=== PATIENT | female | born 1990 | race African-American/Black ===

== ENCOUNTER 2018-11-05 15:41 | Emergency (ER) | payer SELFPAY ==
--- NOTE | 2018-11-05 17:19 | EDM.PDOC ---
ED HPI GENERAL MEDICAL PROBLEM - General Chief Complaint: ENT Problem Stated Complaint: DENTAL COMPLAINT Time Seen by Provider: 11/05/18 16:08 Source of Information: Reports: Patient History Limitations: Reports: No Limitations - History of Present Illness INITIAL COMMENTS - FREE TEXT/NARRATIVE: 28 y/o female presents to ER with cc left lower molar pain for the past 3 days. She denies fever or chills. She states the pain radiates up into her ear. She has been taking Tylenol and Ibuprofen but has had no relief. She is new to the area and doesn't have a dentist. She states she has been otherwise healthy. Onset Date: 11/03/18 Onset Time: 12:00 Duration: Getting Worse Location: Reports: Face Quality: Reports: Ache Severity: Mild Improves with: Reports: None Worsens with: Reports: Cold Therapy Left Jaw Pain Score (Numeric/FACES): 8 - Related Data Allergies Allergy/AdvReac Type Severity Reaction Status Date / Time No Known Allergies Allergy Verified 11/05/18 15:53 Home Meds: Home Meds Amoxicillin 500 mg PO TID 7 Days #21 capsule 11/05/18 [Rx] Past Medical History - Past Health History Medical/Surgical History: Denies Medical/Surgical History Cardiovascular History: Reports: None Respiratory History: Reports: None Gastrointestinal History: Reports: None Genitourinary History: Reports: None [employer] History: Reports: None Musculoskeletal History: Reports: None Neurological History: Reports: None Psychiatric History: Reports: None Endocrine/Metabolic History: Reports: None Hematologic History: Reports: None Immunologic History: Reports: None Oncologic (Cancer) History: Reports: None Dermatologic History: Reports: None - Infectious Disease History Infectious Disease History: Reports: None - Past Surgical History HEENT Surgical History: Reports: Oral Surgery Social & Family History - Family History Family Medical History: Noncontributory - Tobacco Use Smoking Status *Q: Never Smoker - Caffeine Use Caffeine Use: Reports: Coffee - Recreational Drug Use Recreational Drug Use: No ED ROS ENT - Review of Systems Review Of Systems: See Below Constitutional: Denies: Fever, Chills HEENT: Reports: Dental Pain Respiratory: Reports: No Symptoms Cardiovascular: Reports: No Symptoms Endocrine: Reports: No Symptoms GI/Abdominal: Reports: No Symptoms : Reports: No Symptoms Musculoskeletal: Reports: No Symptoms Skin: Reports: No Symptoms Neurological: Reports: No Symptoms Psychiatric: Reports: No Symptoms Hematologic/Lymphatic: Reports: No Symptoms Immunologic: Reports: No Symptoms ED EXAM, ENT - Physical Exam Exam: See Below Exam Limited By: No Limitations General Appearance: Alert, WD/WN, No Apparent Distress Mouth/Throat: Normal Inspection, Normal Lips, Normal Oropharynx, Normal Teeth, Dental Pain, Dental Tenderness, Other (left lower gum line erythema and tenderness noted around tooth # 18) Respiratory/Chest: No Respiratory Distress, Lungs Clear, Normal Breath Sounds, No Accessory Muscle Use, Chest Non-Tender Cardiovascular: Normal Peripheral Pulses, Regular Rate, Rhythm, No Edema, No Gallop, No JVD, No Murmur, No Rub Neurological: Alert, Oriented, Normal Cognition, Normal Gait Psychiatric: Normal Affect, Normal Mood Skin: Warm, Dry, Intact, Normal Color, No Rash Lymphatic: No Adenopathy Course - Vital Signs Last Recorded V/S: Last Vital Signs Temp 97.8 F 11/05/18 15:55 Pulse 75 11/05/18 15:55 Resp 16 11/05/18 15:55 BP 132/86 11/05/18 15:55 Pulse Ox 100 11/05/18 15:55 - Orders/Labs/Meds Labs: Laboratory Tests 11/05/18 Range/Units 16:15 Urine HCG, Qual Negative (NEGATIVE) - Re-Assessments/Exams Free Text/Narrative Re-Assessment/Exam: 11/05/18 17:23 28 y/o female presented to ER with cc left lower dental pain for the past 3 days. I will discharge home with Amoxicillin for outpatient antibiotic therapy. I will give her a list of dentist in the area. Her HCG was negative. Instructed her to take Tylenol or Ibuprofen for pain. Instructed to return to the ER for any new or acute worsening symptoms. Patient verbalized understanding and is comfortable with plan for discharge. She is stable at time of discharge. Departure - Departure Time of Disposition: 17:25 Disposition: Home, Self-Care 01 Condition: Good Clinical Impression: Dental caries, Gingivitis, Pain, dental - Discharge Information Prescriptions: Amoxicillin 500 mg PO TID 7 Days #21 capsule Instructions: Gingivitis, [id number] Referrals: PCP,Not In Area [Primary Care Provider] - Additional Instructions: You have been diagnosis with gingivitis. Take the Amoxicillin as prescribed. You need to follow up with a dentist. Return to the ER for any new or acute worsening symptoms.
== END 2018-11-05 17:36 | disposition home or self-care (01) ==
LOC: JD.ED 15:41
DX: K02.9 Dental caries, unspecified (principal); K05.10 Chronic gingivitis, plaque induced
CPT/HCPCS: 81025; 99283